=== PATIENT | female | born 1960 | race Caucasian/White ===

== ENCOUNTER 2016-12-20 10:51 | Emergency (ER) | payer OTHER ==
[~2016-12-20] VITALS: Ht 170.2 cm; Wt 79.5 kg
[~2016-12-20 10:51] MED LIST: DILA2TAB2 PO; DOCU1CAP39 PO; ENOX40P SQ; HYDR-3133 PO; IBUP-238 PO; PANT20 PO; TRAZ100T50 PO; ULTR50TA PO; WELL150T PO; Z.0.COMMODE-3:1; Z.0.WALKERFRONT
[2016-12-20 10:52] VITALS: BP 145/97; PULSE 82; RESP 17; TEMP 98.2; O2SAT 98
--- NOTE | 2016-12-20 12:17 | PD ---
HPI . right lower leg laceration Chief Complaint: Laceration/Skin Injury Time Seen by Provider: 12:17 Travel History International Travel<30 days: No Contact w/Intl Traveler<30days: No Traveled to known affect area: No History of Present Illness HPI 56-year-old female with history of GERD, COPD, hx of breast cancer, chronic left leg pain, psychiatric issues here with complaints of a right lower extremity laceration sustained earlier today. Patient was working on her bathroom when she accidentally cut herself on a screw that was sticking out of some wood trimming. She has a scratch and laceration to her right lateral lower extremity. The bleeding is under control. She does not recall the date of her last tetanus vaccine. She has no other complaints. PFSH Past Medical History Hx Anticoagulant Therapy: No Arthritis: Yes (both knees) Depression: Yes Cancer: Yes (breast) Cardiovascular Problems: No Chemotherapy: Yes (2005) COPD: Yes Cerebrovascular Accident: No Diabetes: No Diminished Hearing: No GERD: Yes Genitourinary: No Immune Disorder: No Musculoskeletal: Yes (CHRONIC LEFT KNEE PAIN) Neurologic: No Psychiatric: Yes ([facility]) Reproductive: No Respiratory: No Menopausal: Yes : 4 Para: 3 : 1 Tubal Ligation: Yes Past Surgical History Body Medical Devices: left knee replacement Section: Yes Cholecystectomy: Yes Gynecologic Surgery: Yes (RIGHT BREAST LUMPECTOMY) Mastectomy: Yes (jazzy) Tonsillectomy: Yes Other Surgery: Yes (PORT PLACEMENT AND REMOVAL) Social History Alcohol Use: No (QUIT 5 MONTHS AGO) Tobacco Use: Yes (/2 - 3/4 PPD) Substance Use: No (QUIT 5 MONTHS AGO, COCAINE) Allergies-Medications (Allergen,Severity, Reaction): Coded Allergies: Sulfa (Verified Allergy, Mild, RASH, 12/20/16) Reported Meds & Prescriptions Reported Meds & Active Scripts Active Reported Ibuprofen 800 Mg Tab 800 Mg PO Q8H PRN Colace (Docusate Sodium) 100 Mg Cap 100 Mg PO DAILY Abilify (Aripiprazole) 5 Mg Tab 5 Mg PO DAILY Trazodone (Trazodone HCl) 100 Mg Tab 200 Mg PO HS Review of Systems General / Constitutional: No: Fever Eyes: No: Visual changes HENT: No: Headaches Cardiovascular: No: Chest Pain or Discomfort Respiratory: No: Shortness of Breath Gastrointestinal: No: Abdominal Pain Genitourinary: No: Dysuria Musculoskeletal: No: Pain Skin: Positive Other (leg laceration ), No Rash Neurologic: No: Weakness Psychiatric: No: Depression Endocrine: No: Polydipsia Hematologic/Lymphatic: No: Easy Bruising Physical Exam Narrative GENERAL: AAO x 3, no acute distress, Well-nourished, well-developed patient. SKIN: Warm and dry. No visible rashes or bruising. 4.6 cm laceration to the right lateral lower extremity, very superficial. Does not extend through muscle. No visible vessels or bone. HEAD: Normocephalic and atraumatic. EYES: No scleral icterus. No injection or drainage. Erase ENT: No nasal drainage noted. Erase Airway patent. NECK: Supple, trachea midline. No JVD. CARDIOVASCULAR: Regular rate and rhythm without murmurs, gallops, or rubs. RESPIRATORY: Breath sounds equal bilaterally. No accessory muscle use. No rhonchi or rales. GASTROINTESTINAL: Visual inspection is normal EXTREMITIES: No cyanosis or edema. See laceration above BACK: Nontender without obvious deformity. No CVA tenderness. PSYCH: AAO x 3, normal affect. Data Data Last Documented VS Vital Signs Date Time Temp Pulse Resp B/P Pulse Ox O2 Delivery O2 Flow Rate FiO2 12/20/16 10:52 98.2 82 17 145/97 98 Orders Tetanus/Diphtheria Tox Adult (Tetanus/Di (12/20/16 12:30) Lidocaine 1% Inj (50 Ml) (Xylocaine 1% I (12/20/16 12:30) MDM Medical Decision Making Medical Screen Exam Complete: Yes Emergency Medical Condition: Yes Medical Record Reviewed: Yes Differential Diagnosis right leg laceration, abrasion, less likely fracture Narrative Course 56-year-old female with history of GERD, COPD, hx of breast cancer, chronic left leg pain, psychiatric issues here with complaints of a right lower extremity laceration sustained earlier today. Patient was working on her bathroom when she accidentally cut herself on a screw that was sticking out of some wood trimming. She has a scratch and laceration to her right lateral lower extremity. The bleeding is under control. She does not recall the date of her last tetanus vaccine. She has no other complaints. Patient seen and examined. She has a 4.6 cm laceration to the right lower extremity. She agreed to repair. 9 sutures were placed, patient tolerated without incident. Wound care was discussed. Tetanus was administered. She was advised that sutures will need to be removed in 7-10 days. We discussed Tylenol or ibuprofen as needed for pain. She said she will try to get pain medication from her orthopedic physician. Patient verbalized understanding of instructions, questions were answered, and thanked me for their care. I advised them if their condition worsens, please return to the nearest emergency room for further care. Procedures Procedure Narrative LACERATION LOCATION: Right lower extremity lateral side proximal calf LENGTH: 4.6 cm NUMBER OF STITCHES/CROW: 9 simple interrupted REPAIR: The area of the laceration was prepped with Betadine and sterilely draped. The laceration was infiltrated with 1% lidocaine. The wound was copiously irrigated and explored without evidence of foreign body, tendon injury or neurovascular injury. The wound was closed using 4-0 Ethilon. This was a single layer repair. A sterile dressing was applied. The patient was advised to keep the dressing clean and dry. Patient tolerated the procedure well. Diagnosis Primary Impression: Laceration of right lower leg Qualified Code: S81.811A - Laceration of right lower leg, initial encounter Patient Instructions: General Instructions, Laceration (ED) Additional Instructions: Keep area clean and dry. Use gauze as we discussed and change 1-2 times a day. Watch for signs of infection: fever, redness, swelling, warmth, pus or drainage , red streaks around the cut, and increased pain from the area. If any develop, return to the emergency department. If you received a tetanus shot, you may experience tenderness at the injection site. This is normal. The sutures will need to be removed in 7-10 days (9 sutures). Please follow-up with your primary care provider or return to the emergency department for removal. Disposition: 01 DISCHARGE HOME Condition: Stable Alla Trejo Dec 20, 2016 12:17
[2016-12-20] MEDS ORDERED: IBUP800T23 PO (12:24)
[2016-12-20] MEDS ORDERED: COLA100C3 PO (12:24)
[2016-12-20] MEDS ORDERED: TRAZ100T4 PO (12:24)
[2016-12-20] MEDS ORDERED: ABIL5TAB6 PO (12:24)
[2016-12-20] MEDS ORDERED: TETANUS/DIPHTHERIA TOXOID ADULT 0.5 ML VIAL IM ONE (12:30)
[2016-12-20] MEDS ORDERED: LIDOCAINE HCL 1% 50 ML VIAL INFIL ONE (12:30)
== END 2016-12-20 13:03 | disposition home or self-care (01) ==
LOC: NEPK 10:51
DX: F17.210 Nicotine dependence, cigarettes, uncomplicated (principal); W45.8XXA Other foreign body or object entering through skin, initial encounter; W22.09XA Striking against other stationary object, initial encounter; Y93.89 Activity, other specified; Y92.009 Unspecified place in unspecified non-institutional (private) residence as the place of occurrence of the external cause
CPT/HCPCS: 12002; 90471; 90714

== ENCOUNTER 2018-03-16 22:50 | Inpatient (IN) ==
--- NOTE | 2018-03-16 23:47 | ED ---
HPI General Chief complaint: Wound/Laceration Stated complaint: Bleeding Time Seen by Provider: 03/16/18 23:42 Source: patient Mode of arrival: ambulatory Limitations: no limitations History of Present Illness HPI narrative: 57-year-old female patient with history of breast cancer status post bilateral total mastectomy, is currently following up at the [place] with Dr. Coffey for the first stages of breast reconstruction, had tissue expanders placed on Tuesday, complicated by bleeding from the wound, had been seen in the ER yesterday, was seen by her surgeon today earlier on at the [place], and they had placed a drain, seen 2 hours ago at [facility] and cleared for bleeding from wound, presents to the ER today because she states that she is continuing to bleed and is feeling weak now. She wants to stop the bleeding until [facility]. Related Data Home Medications Medication Instructions Recorded Confirmed cholecalciferol (vitamin D3) 1 tab PO DAILY 03/15/18 03/15/18 [Vitamin D3] cyanocobalamin (vitamin B-12) 1 tab PO DAILY 03/15/18 03/15/18 [Vitamin B-12] cyclobenzaprine 10 mg PO BID 03/15/18 03/16/18 docusate sodium [Colace] 100 mg PO DAILY 03/15/18 03/16/18 lurasidone [Latuda] 10 mg PO DAILY 03/15/18 03/16/18 oxycodone-acetaminophen 1 tab PO Q4-6H PRN 03/15/18 03/16/18 pregabalin [Lyrica] 75 mg PO TID 03/15/18 03/16/18 sertraline [Zoloft] 100 mg PO DAILY 03/15/18 03/16/18 trazodone 300 mg PO DAILY 03/15/18 03/16/18 Previous Rx's Medication Instructions Recorded oxycodone-acetaminophen [Percocet] 1 tab PO Q4-6H PRN #7 tab 03/15/18 Allergies Allergy/AdvReac Type Severity Reaction Status Date / Time Sulfa (Sulfonamide Allergy Mild RASH Verified 03/15/18 19:25 Antibiotics) Review of Systems Except as stated in HPI: all other systems reviewed are negative PMFSH History History Provided By: Patient Medical History Medical History H/O: hysterectomy (Acute) Surgical History Surgical History H/O tubal ligation (Acute) Hx of tonsillectomy (Acute) Previous section (Acute) Hx of mastectomy (Acute) Social History Social History Substance History: No History of Abuse Second Hand Smoke Exposure: No Smoking Status: Former smoker Tobacco Type: Cigarettes How Often Do You Have a Drink Containing Alcohol: 2 to 3 times a week Recent Travel in [facility] within the Last 8 Weeks: No Recent Out of Country Travel within the Last 8 Weeks: No Exam Narrative Exam Narrative: GENERAL: Well-developed middle-age female patient currently in moderate distress. Awake and oriented 3. SKIN: Focused skin assessment warm/dry. There is notable ecchymosis over the right and midline anterior chest wall, there is a notable drain that is coming out of the incision site on the right breast, draining a small amount of blood. Bandages are soaked with blood. HEAD: Atraumatic. Normocephalic. EYES: Pupils equal and round. No scleral icterus. No injection or drainage. ENT: No nasal bleeding or discharge. Mucous membranes pink and moist. NECK: Trachea midline. No JVD. CARDIOVASCULAR: Regular rate and rhythm. No murmur appreciated. RESPIRATORY: No accessory muscle use. Clear to auscultation. Breath sounds equal bilaterally. GASTROINTESTINAL: Abdomen soft, non-tender, nondistended. Hepatic and splenic margins not palpable. MUSCULOSKELETAL: No obvious deformities. No clubbing. No cyanosis. No edema. NEUROLOGICAL: Awake and alert. No obvious cranial nerve deficits. Motor grossly within normal limits. Normal speech. PSYCHIATRIC: Appropriate mood and affect; insight and judgment normal. Course Hospital Course: Lab work shows that her hemoglobin has dropped 5 points the last 2 days from 14- 9 today. I have attempted to call the [facility] as well as Dr. Coffey on the number given to us by patient as well as looking up on the online site, and was not able to get in contact with anybody. At this point, case is discussed with Dr. Blue and he states he will come to take the patient to the OR in order to stop this bleeding. Initial Documented Vital Signs Temperature 98.2 F 03/16/18 23:14 Pulse Rate 107 H 03/16/18 23:14 Respiratory Rate 18 03/16/18 23:14 Blood Pressure 156/63 H 03/16/18 23:14 Pulse Oximetry 98 03/16/18 23:14 Last Documented Vital Signs Temperature 98.2 F 03/16/18 23:14 Pulse Rate 107 H 03/16/18 23:14 Respiratory Rate 18 03/16/18 23:14 Blood Pressure 156/63 H 03/16/18 23:14 Pulse Oximetry 98 03/16/18 23:14 Medical Decision Making Differential Diagnosis Differential Diagnosis: Bleeding from surgical wound/evaluation for anemia Lab Data Result diagrams: 03/17/18 00:40 03/17/18 00:40 Lab Results 03/17/18 03/17/18 03/17/18 Range/Units 00:40 00:40 00:40 WBC 14.4 H (4.0-11.0) th/mm3 RBC 2.85 L (4.00-5.30) mil/mm3 Hgb 9.3 L D (11.6-15.3) gm/dL Hct 26.8 L (35.0-46.0) % MCV 94.0 (80.0-100.0) fL MCH 32.5 (27.0-34.0) pg MCHC 34.6 (32.0-36.0) % RDW 14.2 (11.6-17.2) % Plt Count 214 (150-450) th/mm3 MPV 9.3 (7.0-11.0) fL Neut % (Auto) 59.6 (16.0-70.0) % Lymph % (Auto) 31.8 (9.0-44.0) % Carver % (Auto) 5.8 (0.0-8.0) % Eos % (Auto) 1.7 (0.0-4.0) % Baso % (Auto) 1.1 (0.0-2.0) % Neut # (Auto) 8.6 H (1.8-7.7) th/mm3 Lymph # (Auto) 4.6 (1.0-4.8) th/mm3 Carver # (Auto) 0.8 (0.0-0.9) th/mm3 Eos # (Auto) 0.3 (0.0-0.4) th/mm3 Baso # (Auto) 0.2 (0.0-0.2) th/mm3 WBC Differential . Differential Comment Auto diff final PT 10.5 (9.8-11.6) sec INR 1.0 Ratio APTT 22.2 L (24.3-30.1) sec Sodium 139 (136-145) meq/L Potassium 4.2 (3.5-5.1) meq/L Chloride 106 (98-107) meq/L Carbon Dioxide 25.3 (21.0-32.0) meq/L Anion Gap 8 (5-15) meq/L BUN 15 (7-18) mg/dL Creatinine 0.95 (0.50-1.00) mg/dL Estimated GFR 60 L (>89) mL/min Random Glucose 121 H (74-106) mg/dL Calcium 8.3 L (8.5-10.1) mg/dL Discharge Plan Discharge Disposition Patient Disposition: 30 Still Patient Discharge Condition Condition: Fair Discharge Details Anticipated Discharge Date: 03/17/18 Diagnosis: Post-op bleeding Physicians Team ED Provider: Nadira Yanez Primary Care Provider: [facility],Physician 's Rxs /Orders / Referrals /Forms Prescriptions: No Action cyclobenzaprine 10 mg Tablet 10 mg PO BID RF: 0 sertraline [Zoloft] 100 mg Tablet 100 mg PO DAILY RF: 0 cyanocobalamin (vitamin B-12) [Vitamin B-12] 1,000 mcg Tablet 1 tab PO DAILY RF: 0 trazodone 300 mg Tablet 300 mg PO DAILY RF: 0 docusate sodium [Colace] 100 mg Capsule 100 mg PO DAILY RF: 0 cholecalciferol (vitamin D3) [Vitamin D3] 1,000 unit Capsule 1 tab PO DAILY RF: 0 pregabalin [Lyrica] 75 mg Capsule 75 mg PO TID RF: 0 oxycodone-acetaminophen 5-300 mg Tablet 1 tab PO Q4-6H PRN (Reason: Pain) RF: 0 lurasidone [Latuda] 20 mg Tablet 10 mg PO DAILY RF: 0 oxycodone-acetaminophen [Percocet] 5-325 mg tablet 1 tab PO Q4-6H PRN (Reason: Acute pain) Qty: 7 RF: 0 Status ED Status: With Doctor
[2018-03-17 01:05] LABS: Baso # (Auto) 0.2 th/mm3 (0.0-0.2); Baso % (Auto) 1.1 % (0.0-2.0); Eos # (Auto) 0.3 th/mm3 (0.0-0.4); Eos % (Auto) 1.7 % (0.0-4.0); Hematocrit 26.8 % (35.0-46.0); Hemoglobin 9.3 gm/dL (11.6-15.3); Lymph # (Auto) 4.6 th/mm3 (1.0-4.8); Lymph % (Auto) 31.8 % (9.0-44.0); Mean Corpuscular HGB Conc 34.6 % (32.0-36.0); Mean Corpuscular Hemoglobin 32.5 pg (27.0-34.0); Mean Platelet Volume 9.3 fL (7.0-11.0); Mono # (Auto) 0.8 th/mm3 (0.0-0.9); Mono % (Auto) 5.8 % (0.0-8.0); Neut # (Auto) 8.6 th/mm3 (1.8-7.7); Neut % (Auto) 59.6 % (16.0-70.0); Platelet Count 214 th/mm3 (150-450); Red Blood Count 2.85 mil/mm3 (4.00-5.30); Red Cell Distribution Width 14.2 % (11.6-17.2); White Blood Count 14.4 th/mm3 (4.0-11.0)
[2018-03-17 01:15] LABS: Activated Partial Thrombo Time 22.2 sec (24.3-30.1); Prothrombin Time 10.5 sec (9.8-11.6)
[2018-03-17 01:18] LABS: Calcium 8.3 mg/dL (8.5-10.1); Carbon Dioxide 25.3 meq/L (21.0-32.0); Potassium 4.2 meq/L (3.5-5.1)
[2018-03-17] MEDS ORDERED: fentaNYL Citrate Inj 250 MCG/5 ML Ampul ONE ×2 (03:28)
[2018-03-17] MEDS ORDERED: Temazepam 15 MG Capsule PO PRN (03:39)
[2018-03-17] MEDS ORDERED: Bisacodyl 10 MG Supp RECTAL PRN (03:39)
[2018-03-17] MEDS ORDERED: Acetaminophen 325 MG Tablet PO PRN (03:39)
[2018-03-17] MEDS ORDERED: Sodium Chlor 0.9% Inj 250 ML IV.SIG SCH (04:00)
[2018-03-17] MEDS ORDERED: Bupivacaine/Epinephrine PF Inj 0.5% 10 ML Vial ONE (04:22)
--- NOTE | 2018-03-17 05:54 | P.BOP ---
- Preoperative Diagnosis (1) Post-op bleeding (2) Hx of mastectomy - Postoperative Diagnosis (1) Post-op bleeding (2) Hx of mastectomy Date of procedure: 03/17/18 Procedure: Evacuation large hematoma right chest wall from previous breast reconstruction Removal of tissue health information specialist Stop bleeding from inferior aspect of wound and superior aspect of wound Implants: Removal of tissue implant health information specialist Anesthesia: GETA Surgeon: Aaron Blue MD Pathology: other Condition: stable Disposition: PACU
--- NOTE | 2018-03-17 05:58 | MB ---
cc: Aaron Blue MD [facility], DATE: 03/17/2018 REASON FOR CONSULTATION: Hemorrhage from breast reconstruction. HISTORY OF PRESENT ILLNESS: This is a 57-year-old female who had a breast reconstruction done at the [facility], apparently has had about 4 or 5 episodes of bleeding and came into the emergency room. She saw her surgeon earlier today and apparently placed a drain and evacuated hematoma. This has been bleeding the rest of the day. Came into the emergency room and the ER physician attempted to notify the treating surgeon. However, there were no answers; they have exhausted all attempts to reach the [facility] and the covering physicians of this plastic surgeon. Dr. Valdez asked me to take care of this unfortunate lady who is continuing to bleed and has a drop in her hemoglobin. Main complaint is pain at the site and continued bleeding from the Acme drain site. PAST MEDICAL HISTORY: She has had breast cancer and bilateral mastectomies and then recently had this reconstruction with implants, tissue expanders. She has had a hysterectomy. PHYSICAL EXAMINATION: GENERAL: She is a well-developed, in mild distress about her medical condition. NECK: Supple. CHEST: Clear. HEART: Regular rate. ABDOMEN: Negative. BREASTS: She has tissue expanders bilaterally. She has a Acme drain in the right side in the axillary region. It is oozing slightly, bright red blood. She has a fairly sizable hematoma on this side as well. NEUROLOGIC: She is alert, oriented, somewhat concerned about her medical condition. LABORATORY DATA: Her H and H is 9 and 26 from previous H and H drawn earlier; it was at 14, so she has a fairly significant drop. I do not have any operative notes. Apparently, she has a tissue yarrow gatherer. She thinks she might have had it as subpectoral underneath the muscle. PLAN: Immediate operative intervention. I told the patient that I may have to remove the implant, depending on where it is. She appeared to understand. MD ALICE Fabian/COLT , 05:26 AM , 05:56 AM
--- NOTE | 2018-03-17 06:12 | MP ---
cc: Aaron Blue MD DATE OF OPERATION: 03/17/2018 DATE OF PROCEDURE: 03/17/2018. PREOPERATIVE DIAGNOSIS: Previous breast reconstruction with tissue expanders, with hemorrhage. POSTOPERATIVE DIAGNOSIS: Bleeding from the inferior aspect of the chest wall and superiorly near the axillary region. ANESTHESIA: General. PROCEDURE PERFORMED: 1. Evacuation of 900 mL of hematoma, removal of tissue cafeteria assistant. 2. Cautery of oozing blood vessels. 3. Placement of ISHAN and closure of wound. SURGEON: Dr. Blue. INDICATIONS: This is an unfortunate 57-year-old female who has recently had a tissue cafeteria assistant placed. Apparently, she has been bleeding for 4 or 5 days, saw her plastic surgeon earlier today where a part of the hematoma was evacuated and a Lauro drain was placed. She came back into the emergency room when she continued to bleed a fair amount of blood and has a recurrence of her fairly sizable hematoma that is tender. ER personnel have exhausted all means of trying to contact the treating physician and asked me to assist in management at 2:00 in the morning because she had a significant drop in her hemoglobin. DESCRIPTION OF PROCEDURE: The patient was taken to the operating room, placed in position after anesthesia. The Lauro drain was partially already out, was removed. She has a fairly sizable hematoma. I am not able to evaluate the wound through the axillary incision for this reason I extending incision where this hematoma is in the right axillary region. When I place my finger just a centimeter in, I can feel the implant. It does not feel like it is subpectoral. She has a clot underneath the implant and on top of it. I try to evacuate this, but I cannot visualize where this bleeding is coming from. For this reason, I make an incision over the apex of this large hematoma on the right chest wall where she had previous scar from her reconstruction or mastectomy. When I enter it, there is a massive amount of hemorrhage and clot. The implant is just surrounded by clot, and so this is all removed. There is about 900 mL of clot. I then irrigate, remove more clot, and it appears that she is oozing from the inferior aspect along the inferior crease of the chest wall. There is a sizable vein that is just oozing. This is cauterized until it stops. I dissect up more clot up in the axillary region and some mild oozing up on the muscle here, and this is cauterized as well, then irrigated copiously with a liter of saline. It looks like there is adequate hemostasis, but just to be assured, I do put some Ceci along the inferior border and the superior border where the slight oozing was before I cauterized it. At this point, I do not feel it is safe to replace the implant. For risking of infection. for this reason, a flat fluted Ovidio drain is placed along the inferior crease of the breast through a separate stab wound incision. The deep layer of the incision that I made was closed with a 3-0 Vicryl and skin was closed with a 4-0 Vicryl. The drain site was then reapproximated with a 3-0 nylon. Sterile bandage was applied. The patient tolerated the procedure well, had no immediate postop complication. Will watch her. She may require blood transfusion. We will see what her hemoglobin and hematocrit is in the morning. MD ALICE Fabian/COLT , 05:31 AM , 06:10 AM MTDMely
[2018-03-17] MEDS: Morphine Inj 4 MG/ML Vial IV.PUSH PRN ×2 (07:40→11:39)
[2018-03-17] MEDS ORDERED: Senna/Docusate Sodium 8.6/50 MG Tablet PO SCH (09:00)
--- NOTE | 2018-03-17 10:20 | ECG ---
Date Performed: 03/17/2018 Time Performed: 03:19:16 PTAGE: 57 years EKG: Sinus rhythm NORMAL ECG PREVIOUS TRACING : 03/15/2018 16.28 Since the previous tracing, no significant change noted DOCTOR: Jenniffer Dolan Interpretating Date/Time 03/17/2018 10:19:58
--- NOTE | 2018-03-17 13:49 | P.HP ---
History of Present Illness Primary Care Physician: [facility] Chief Complaint: hematoma breast bleding after surgery History of Present Illness: 57-year-old female patient with history of breast cancer status post bilateral total mastectomy, is currently [facility] with Dr[facility] Coffey for the first stages of breast reconstruction, had tissue expanders placed on Tuesday , complicated by bleeding from the wound, had been seen in the ER yesterday, was seen by her surgeon today earlier on at the [facility], and they had placed a drain , seen 2 hours ago at [place] [facility] and cleared for bleeding from wound, presents to the ER today because she states that she is continuing to bleed and is feeling weak. She wants to stop the bleeding until [facility] The patient hemoglobin dropped. The surgeon was consulted Dr. Blue has seen the patient and decided to take the patient to the OR to stop the bleeding and remove the hematoma. Patient went for OR. She was seen after surgical intervention by Dr. Blue today. She is cleared by the surgeon for discharge. She says she has less pain and she feels much better. Says she has an appointment for follow-up with her nurse surgeon on Tuesday. She feels comfortable to go home. She is saturating well on room air. No chest pain or shortness of breath. She is ambulating without any problems. Inpatient Certification: I certify that the inpatient services were ordered in accordance with Medicare regulations governing the order. This includes certification that hospital inpatient services are reasonable and necessary and in the case of services not specified as inpatient-only under 42 CFR 419.22(n), that they are appropriately provided as inpatient services in accordance to with the 2-midnight benchmark under 43 CFR 412.3(e) Estimated Total Length of Stay (Days): 2 Plans for Post Hospital Care: Not yet determined Review of Systems All other systems reviewed negative except as stated in HPI PMFSH - History History Provided By: Patient - Medical History Medical History: Medical History (Last Reviewed 03/17/18 @ 03:52 by Latonya Cornelius) H/O: hysterectomy (Acute) - Surgical History Surgical History: Surgical History (Last Reviewed 03/17/18 @ 03:52 by Latonya Cornelius) H/O tubal ligation (Acute) Hx of tonsillectomy (Acute) Previous section (Acute) Hx of mastectomy (Acute) - Family History Family History: Family History (Last Updated 03/17/18 @ 18:11 by Neris Anderson MD) Other Breast cancer - Tobacco History Second Hand Smoke Exposure: No Tobacco Use In Past 30 Days: Yes Smoking Status: Current some day smoker Tobacco Type: Cigarettes - Alcohol History How Often Do You Have a Drink Containing Alcohol: Monthly or less - Substance Use History Substance History: No History of Abuse - Travel History Recent Travel in the [place] Within the Last 8 Weeks: No Recent Travel Out of the Country Within the Last 8 Weeks: No - Immunization History Tetanus Immunization: <5 Years Hx Influenza Vaccine This Season: No Medications and Allergies Active Medications: Active Medications Acetaminophen (Tylenol) 650 mg PO Q4H PRN PRN Reason: Temp > 100.4 Al Hydroxide/Mg Hydroxide (Milk Of Magnesia Liq) 30 ml PO Q12H PRN PRN Reason: Mild Constipation Bisacodyl (Dulcolax Supp) 10 mg RECTAL DAILY PRN PRN Reason: SEVERE CONSITIPATION Sodium Chloride (Ns Inj) 250 mls @ 15 mls/hr IV.SIG ONCE KAMALJIT Stop: 03/17/18 20:39 Last Admin: 03/17/18 11:58 Dose: Not Given Lactulose (Lactulose Liq) 30 ml PO DAILY PRN PRN Reason: SEVERE CONSITIPATION Miscellaneous Information ([facility] Nursing Information) 1 each OTHER UNSCH PRN PRN Reason: SEE LABEL COMMENTS Stop: 03/18/18 05:24 Morphine Sulfate (Morphine Inj) 2 mg IV.PUSH Q4H PRN PRN Reason: PAIN 6-10 Last Admin: 03/17/18 11:39 Dose: 2 mg Ondansetron HCl (Zofran Odt) 4 mg PO Q6H PRN PRN Reason: NAUSEA OR VOMITING Senna/Docusate Sodium (Rosa-Colace) 1 tab PO BID KAMALJIT Last Admin: 03/17/18 11:44 Dose: 1 tab Sennosides (Senokot) 17.2 mg PO Q12H PRN PRN Reason: Moderate Constipation Temazepam (Restoril) 15 mg PO HS PRN PRN Reason: INSOMNIA Allergies Allergy/AdvReac Type Severity Reaction Status Date / Time Sulfa (Sulfonamide Allergy Mild RASH Verified 03/15/18 19:25 Antibiotics) Home Medications Medication Instructions Recorded Confirmed Type cholecalciferol (vitamin D3) 1 tab PO DAILY 03/15/18 03/15/18 History [Vitamin D3] cyanocobalamin (vitamin B-12) 1 tab PO DAILY 03/15/18 03/15/18 History [Vitamin B-12] cyclobenzaprine 10 mg PO BID 03/15/18 03/16/18 History docusate sodium [Colace] 100 mg PO DAILY 03/15/18 03/16/18 History lurasidone [Latuda] 10 mg PO DAILY 03/15/18 03/16/18 History oxycodone-acetaminophen 1 tab PO Q4-6H PRN 03/15/18 03/16/18 History pregabalin [Lyrica] 75 mg PO TID 03/15/18 03/16/18 History sertraline [Zoloft] 100 mg PO DAILY 03/15/18 03/16/18 History trazodone 300 mg PO DAILY 03/15/18 03/16/18 History Exam Vital signs: Vital Signs 03/16/18 23:14 03/17/18 03:35 03/17/18 05:00 Temperature 98.2 F 98.7 F Pulse Rate 107 H 94 H 92 H Respiratory Rate 18 16 16 Blood Pressure 156/63 H 124/68 127/59 L Pulse Oximetry 98 99 92 L 03/17/18 05:15 03/17/18 05:30 03/17/18 05:45 Temperature Pulse Rate 86 80 79 Respiratory Rate 24 14 16 Blood Pressure 129/66 119/62 118/85 Pulse Oximetry 96 95 93 L 03/17/18 06:03 03/17/18 07:05 03/17/18 08:00 Temperature 98.0 F 98.9 F Pulse Rate 80 82 89 Respiratory Rate 18 18 18 Blood Pressure 102/56 L 107/59 L Pulse Oximetry 97 95 95 03/17/18 08:38 03/17/18 11:44 Temperature 99 F Pulse Rate 85 91 H Respiratory Rate 20 24 Blood Pressure 113/65 127/74 Pulse Oximetry 97 94 L Intake & Output 03/16/18 03/17/18 03/17/18 18:59 06:59 18:59 Intake Total 600 / 600 Output Total 90 / 90 350 / 350 Balance 510 / 510 -350 / -350 Weight 83.915 kg Intake: Anesthesia Amount 600 / 600 Output: Urine 350 / 350 Estimated Blood Loss 50 / 50 Wound Drainage 40 / 40 Right Breast 40 / 40 Other: # Incontinent Voids 1 Date of Last Bowel Movement 03/16/18 Narrative: GENERAL: 57 yo F in nad. SKIN: Ecchymosis noted on the right and mid anterior chest wall. Dressing CDI. Drain in place. HEAD: Atraumatic. Normocephalic. EYES: Pupils equal and round. No scleral icterus. No injection or drainage. ENT: No nasal bleeding or discharge. Mucous membranes pink and moist. NECK: Trachea midline. No JVD. CARDIOVASCULAR: Regular rate and rhythm. RESPIRATORY: No accessory muscle use. Clear to auscultation. Breath sounds equal bilaterally. GASTROINTESTINAL: Abdomen soft, non-tender, nondistended. Hepatic and splenic margins not palpable. MUSCULOSKELETAL: Extremities without clubbing, cyanosis, or edema. No obvious deformities. NEUROLOGICAL: Awake and alert. No obvious cranial nerve deficits. Motor grossly within normal limits. Five out of 5 muscle strength in the arms and legs. Normal speech. PSYCHIATRIC: Appropriate mood and affect; insight and judgment normal. Results - Labs CBC & Chem 7: 03/17/18 00:40 03/17/18 00:40 Labs: Laboratory Results - last 24 hr 03/17/18 03/17/18 03/17/18 00:40 00:40 00:40 WBC 14.4 H RBC 2.85 L Hgb 9.3 L D Hct 26.8 L MCV 94.0 MCH 32.5 MCHC 34.6 RDW 14.2 Plt Count 214 MPV 9.3 Neut % (Auto) 59.6 Lymph % (Auto) 31.8 [place] % (Auto) 5.8 Eos % (Auto) 1.7 Baso % (Auto) 1.1 Neut # (Auto) 8.6 H Lymph # (Auto) 4.6 [place] # (Auto) 0.8 Eos # (Auto) 0.3 Baso # (Auto) 0.2 WBC Differential . Differential Comment Auto diff final PT 10.5 INR 1.0 APTT 22.2 L Sodium 139 Potassium 4.2 Chloride 106 Carbon Dioxide 25.3 Anion Gap 8 BUN 15 Creatinine 0.95 Estimated GFR 60 L Random Glucose 121 H Calcium 8.3 L Caprini VTE Risk Assessment Caprini VTE Risk Assessment: No/Low Risk (score <= 1) VTE Pharmacological Exception Reason: Hemorrhage Caprini Risk Assessment Model: Point Value = 1 Point Value = 2 Point Value = 3 Point Value = 5 Age 41-60 Minor surgery BMI > 25 kg/m2 Swollen legs Varicose veins or History of unexplained or recurrent spontaneous Oral contraceptives or hormone replacement Sepsis (< 1 month) Serious lung disease, including pneumonia (< 1 month) Abnormal pulmonary function Acute myocardial infarction Congestive heart failure (< 1 month) History of inflammatory bowel disease Medical patient at bed rest Age 61-74 Arthroscopic surgery Major open surgery (> 45 min) Laparoscopic surgery (> 45 min) Malignancy Confined to bed (> 72 hours) Immobilizing plaster cast Central venous access Age >= 75 History of VTE Family history of VTE Factor V Leiden Prothrombin 41510A Lupus anticoagulant Anticardiolipin antibodies Elevated serum homocysteine Heparin-induced thrombocytopenia Other congenital or acquired thrombophilia Stroke (< 1 month) Elective arthroplasty Hip, pelvis, or leg fracture Acute spinal cord injury (< 1 month) Prophylaxis Regimen: Total Risk Factor Score Risk Level Prophylaxis Regimen 0-1 Low Early ambulation 2 Moderate Order ONE of the following: *Sequential Compression Device (SCD) *Heparin 5000 units SQ BID 3-4 Higher Order ONE of the following medications: *Heparin 5000 units SQ TID *Enoxaparin/Lovenox 40 mg SQ daily (WT < 150 kg, CrCl > 30 mL/min) *Enoxaparin/Lovenox 30 mg SQ daily (WT < 150 kg, CrCl > 10-29 mL/min) *Enoxaparin/Lovenox 30 mg SQ BID (WT < 150 kg, CrCl > 30 mL/min) AND/OR *Sequential Compression Device (SCD) 5 or more Highest Order ONE of the following medications: *Heparin 5000 units SQ TID (Preferred with Epidurals) *Enoxaparin/Lovenox 40 mg SQ daily (WT < 150 kg, CrCl > 30 mL/min) *Enoxaparin/Lovenox 30 mg SQ daily (WT < 150 kg, CrCl > 10-29 mL/min) *Enoxaparin/Lovenox 30 mg SQ BID (WT < 150 kg, CrCl > 30 mL/min) AND *Sequential Compression Device (SCD) Assessment and Plan - Plan The patient is a very pleasant 57-year-old female with history of breast cancer status post bilateral breast expanders who developed hematoma on the right side History of breast cancer with bilateral mastectomies in 2012 Right chest wall hematoma from previous breast reconstruction S/p Evacuation large hematoma right chest wall from previous breast reconstruction Removal of tissue supervisor roller shop Stop bleeding from inferior aspect of wound and superior aspect of wound Removal of tissue implant supervisor roller shop Surgeon: Aaron Blue MD Clear by surgeon for discharge. Patient has an appointment with her surgeon on Tuesday. Restart home medications as appropriate Chemical DVT prophylaxis contraindicated at this time as patient with hematoma. Patient is ambulating Discharge Plan Cleared by consultants for discharge. Patient appears stable medically. Patient is discharged home in stable condition to follow-up with PCP and consultants as outpatient. Says she has an appointment with the her surgeon on Tuesday in [place]. Diet healthy heart diet Activity ad jean marie. as tolerated Medications per medication reconciliation's
[2018-03-17] MEDS ORDERED: Neostigmine Inj 5 MG/5 ML Syringe IV.PUSH ONE (14:53)
[2018-03-17] MEDS ORDERED: Phenylephrine/NS 1000 MCG/10ML Syringe IV.PUSH ONE (14:53)
[2018-03-17] MEDS ORDERED: Glycopyrrolate Inj 1 MG/5 ML Syringe IV.PUSH ONE (14:53)
[2018-03-17] MEDS ORDERED: Lidocaine PF 1% Inj 5 ML Syringe INFILTRATN ONE (14:53)
== END 2018-03-17 14:54 | disposition home or self-care (01) ==
LOC: NEPC 22:50 → NEDA 03-17 03:40 → HCIN 03-17 08:25
PROVIDERS: ADMIT Hospitalist; ATTEND Hospitalist